=== PATIENT | female | born 1955 | race Asian ===

== ENCOUNTER 2024-06-16 09:10 | Day surgery (SDC) | payer MEDICARE, SELFPAY ==
--- NOTE | 2024-06-15 07:00 | EKG_ITS ---
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
[2024-06-15 08:59] VITALS: BMI 28.3
[2024-06-15 11:14] LABS: Basophils # (Auto) 0.1 Thou/mm3 (0.0-0.2); Basophils % (Auto) 1 % (0-2.5); Eosinophils # (Auto) 0.2 Thou/mm3 (0.0-0.5); Eosinophils % (Auto) 3 % (0-10); Hematocrit 39.3 % (36.0-46.0); Hemoglobin 12.6 g/dL (12.0-16.0); Immature Granulocytes % (Auto) 0 % (0-0); Immature Granulocytes Auto 0.02 Thou/mm3 (0.00-0.00); Lymphocytes # (Auto) 2.6 Thou/mm3 (1.0-4.8); Lymphocytes % (Auto) 35 % (10-50); Mean Corpuscular HGB Conc 32.1 g/dl (31.0-37.0); Mean Corpuscular Hemoglobin 30.5 pg (25.0-35.0); Mean Corpuscular Volume 95 fL (80-100); Monocytes # (Auto) 0.6 Thou/mm3 (0.0-0.8); Monocytes % (Auto) 9 % (0-12); Neutrophils # (Auto) 3.9 Thou/mm3 (1.8-7.7); Neutrophils % (Auto) 53 % (37-80); Nucleated Red Blood Cell % 0 /100 WBC (0); Platelet Count 230 Thou/mm3 (140-440); RDW Standard Deviation 48.6 fL (36.4-46.3); Red Blood Count 4.13 Miln/mm3 (4.00-5.20); White Blood Count 7.5 Thou/mm3 (3.6-11.0)
[2024-06-15 11:20] LABS: Prothrombin Time 10.9 Seconds (9.0-12.2)
[2024-06-15 11:26] LABS: Alanine Aminotransferase 15 U/L (10-49); Albumin, Serum 4.2 gm/dL (3.4-4.8); Albumin/Globulin Ratio 1.5 (1.2-2.2); Alkaline Phosphatase 89 U/L (46-116); Anion Gap 8 (7-16); Aspartate Amino Transferase 16 U/L (0-34); BUN/Creatinine Ratio 17 Ratio (12-20); Bilirubin,Total 0.4 mg/dL (0.3-1.2); Blood Urea Nitrogen 27 mg/dL (9-23); Calcium 9.4 mg/dL (8.3-10.6); Calcium (Corrected) 9.4 mg/dL (8.5-10.1); Carbon Dioxide 25.2 mMol/L (20.0-31.0); Chloride 109 mMol/L (98-107); Creatinine (Component) 1.6 mg/dL (0.6-1.3); Estimated Creatinine Clearance 35.8 mL/min (>60); Globulin 2.8 gm/dL (2.3-3.5); Glucose 95 mg/dL (74-106); Osmolality,Calculated 288 (275-295); Potassium 4.4 mMol/L (3.4-5.1); Sodium 142 mMol/L (136-145); Thyroid Stimulating Hormone 4.93 uIU/mL (0.55-4.78); eGFR 35 See Note
[2024-06-15 11:31] LABS: T4 (Thyroxine) 6.4 mcg/dL (4.5-10.9)
[2024-06-16] VITALS (20 sets, daily range): BP systolic 126–179; BP diastolic 67–103; PULSE 56–82; RESP 12–23; TEMP 36.2–36.4; O2SAT 93–99; BMI 28.2
--- NOTE | 2024-06-16 09:50 | SUR.PREOP ---
anesthesiologist Douglas aware of cardiac strip, EKG ordered per Douglas
--- NOTE | 2024-06-16 09:56 | EKG_ITS ---
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
--- NOTE | 2024-06-16 10:00 | SUR.PREOP ---
spoke with Lakshmi mcclendon RN, hr generalist was called multiple times and faxed, no response, Lakshmi WARD called again- Dr Martinez's office stated they will fax Cardiology notes
--- NOTE | 2024-06-16 10:53 | CHAP ---
Visited with patient and gave encouragement and prayer.
--- NOTE | 2024-06-16 11:25 | SUR.PREOP ---
No fax received from reservation agent, called and spoke to Dr Martinez's office and confirmed that pt does have history of Afib, Douglas anesthesiologist made aware.
--- NOTE | 2024-06-16 13:23 | SUR.PHASEI ---
pt received from OR in recovery bay 1. pt obtunded, breathing unlabored on oxymask 10l, oral airway in place. v/s stable. pt dressing to neck cdi. report received from Mana BARAJAS and Conner WARD.
--- NOTE | 2024-06-16 13:23 | PD.SUROPNT ---
Date of Procedure 06/16/24 Pre Op Diagnosis Bilateral thyroid nodules Post Op Diagnosis Bilateral thyroid nodules Procedure Total thyroidectomy Findings Enlarged left thyroid lobe displacing trachea slightly to the right, small thyroid nodules Procedure Description Patient brought to the operating room in supine position. After administration of general endotracheal anesthesia, patient's neck was extended and prepped and draped in standard surgical manner. An approximately 5 cm semicircular incision was made approximately 2 fingerbreadths above the sternal notch. Dissection was carried subcutaneous tissue and platysma was divided. Superior and inferior subplatysmal plane were developed. Median raphae was identified and divided. The procedure started on patient's left side. The strap muscle on the left side was retracted laterally and the areolar tissue between the strap muscle and the thyroid tissues were divided. The left lobe was significantly enlarged slightly displacing trachea to the right. The median thyroid vein was identified and ligated. The superior pole vessels were mobilized and divided with 0 silk tie. The inferior vessels were then individually identified and ligated. The recurrent laryngeal nerve on the left side was identified and kept away from dissection proceeded all times. I was able to identify the superior parathyroid gland and preserved it, I was unable to clearly identify the inferior parathyroid gland. Once the vessels were ligated the thyroid was from the anterior surface of the trachea by dividing the ligament of Mishra. I then turned my attention to patient's right lobe. The right lobe was not enlarged however it had small nodules. The procedure was performed in similar fashion. Recurrent laryngeal nerve was identified and preserved. I was able to clearly identify the inferior parathyroid gland and preserved with, the superior parathyroid gland on the right side was not clearly identified. Both sides were copiously thoroughly washed and irrigated, all the fluids were suctioned in the section fluids and clear. Hemostasis was adequate and satisfactory. Topical hemostatic agent snow Surgicel placed on both sides of the neck to further secure hemostasis. Median raphae was then closed with running 2-0 Vicryl. Platysma reapproximated with interrupted sutures using 3-0 Vicryl, and the incision was closed with 4-0 Monocryl subcuticular fashion. Instruments, needle and sponge counts were reported to be correct ?2. Patient tolerated procedure well. She was extubated, breathing spontaneously and without difficulty and was transferred to postanesthesia care in stable condition. Anesthesia GETA and local Pathology / specimen Other (Total thyroid) Estimated Blood Loss 20 Condition Stable Disposition PACU Surgeon Bubba Harden MD Surgical Staff Operation Date: 06/16/24 11:15 Case Staff CREAM RIPENER: Douglas Junior RNfront office java developer: Debbi Basurto
[2024-06-16] MEDS: fentaNYL CIT INJ 50 mCg/ML AMP 2ML IV ×3 (13:45→14:48)
--- NOTE | 2024-06-16 13:52 | SUR.PHASEI ---
pt able to tolerate oral fluids without difficulty swallowing or nausea/vomiting.
[2024-06-16] MEDS: HYDROmorphone INJ 2 MG/ML VIAL 0.5 MG IV ×2 (13:58→14:08)
[2024-06-16] MEDS: ALBUTEROL/IPRATROPIUM (Duoneb) RT SOL 3 ML NEBU INH (14:37)
[2024-06-16] MEDS: ALBUTEROL RT 2.5 MG/3 ML NEBU INH (15:01)
[2024-06-16] MEDS: fentaNYL CIT INJ 50 mCg/ML AMP 2ML 25 MCG IV (15:47)
[2024-06-16] MEDS: Magnesium Sulfate 2 GM Ivpb 2 GM/50 ML BAG IV (16:44)
--- NOTE | 2024-06-16 17:00 | SUR.PHASEII ---
report given to Leonora WARD at this time.
--- NOTE | 2024-06-16 18:15 | SUR.PHASEII ---
Able to stand and trasfer to bed with minimal assist, tolerated well. Taken to room 362 via bed. Call light in hand. Dressing to neck remains C/D/I. No c/o pain or discomfort. Responding to questions and commands appropriately. Conversing with her and staff. Tolerated sips of water PO well. at bedside and SYLVIA Camarillo at bedside. O2 via oxymask at 3L.
--- NOTE | 2024-06-16 18:15 | PC.NURSE ---
Received report from Leonora WARD and gave report to Rabia WARD
[2024-06-16] MEDS: MEMANTINE HCL 5 MG TABLET 10 MG PO (19:57)
[2024-06-16] MEDS: HYDROcodone/APAP 5/325 TABLET 1 TAB PO (19:57)
[2024-06-16] MEDS: ATORVASTATIN CALCIUM 20 MG TABLET 80 MG PO (20:14)
[2024-06-16] MEDS: GABAPENTIN 300 MG CAPSULE 900 MG PO (20:14)
[2024-06-16] MEDS: DOCUSATE SOD 100 MG CAPSULE PO (20:15)
[2024-06-16] MEDS: LOSARTAN POTASSIUM 25 MG TABLET 50 MG PO (20:16)
[2024-06-16] MEDS: INSULIN GLARGINE (Lantus) 5 UNIT/0.05 ML (PER 5 UNITS) 18 UNIT SC (20:51)
[2024-06-16] MEDS: CALCIUM CARBONATE 600 MG TABLET PO (21:00)
[2024-06-17] VITALS: BP 118/73; PULSE 73; RESP 16; TEMP 36.5; O2SAT 97
[2024-06-17] MEDS: HYDROcodone/APAP 5/325 TABLET 1 TAB PO (03:48)
[2024-06-17 04:00] VITALS: BP 123/84; PULSE 76; RESP 16; TEMP 36.2; O2SAT 97
--- NOTE | 2024-06-17 05:00 | PC.NURSE ---
Patient expressed wish to speak with nurse, Patient stated that he and the patient wanted to leave AMA now. Nurse questioned the reason behind their choice. Patient stated that they do not want to wait until 10:00 for the doctor to come in. MD Harden was notified. AMA papers completed.
== END 2024-06-17 05:16 | disposition left against medical advice (07) ==
LOC: S2EX 15:35 → S3NX 06-17 06:45
PROVIDERS: PCP Family Medicine; Referring Provider Surgery; Visit Provider Surgery
PROC: (CPT 60240; principal; 2024-06-16 11:00)
DX: E04.2 Nontoxic multinodular goiter (principal); Z01.810 Encounter for preprocedural cardiovascular examination
CPT/HCPCS: 60240; 36415; 80053; 84436; 84443; 85025; 85610; 93005; 94664; A4217; A4649; A9270; J0690; J1100; J1815; J2371; J2405; J2704; J3010; J3475; J3490; J1805